=== PATIENT | male | born 1990 ===

== ENCOUNTER 2017-05-19 08:24 | Emergency (ER) | payer MEDICAID ==
[2017-05-19 08:43] VITALS: BMI 24.7
[2017-05-19 08:49] VITALS: O2SAT 100
--- NOTE | 2017-05-19 09:35 | C.PDOC ---
History Of Present Illness Pt c/o right sided neck pain on/off that started again this morning. He has a h/ o right cochlear implant for the past 20 year and he attributes this pain to the implant. He states that he does not use the implant anymore and therefore wants it to be removed. Time Seen by Provider: 05/19/17 09:08 Chief Complaint (Nursing): ENT Problem History Per: Patient, [employer] (Sign language) History/Exam Limitations: physical impairment (Deaf) Onset/Duration Of Symptoms: Days (chronic), Intermittent Episodes Current Symptoms Are (Timing): Still Present Quality Of Discomfort: "Pain" Severity: Moderate Previous Symptoms: Neck Pain Associated Symptoms: None Exacerbating Factor(s): Turning, Movement Additional History Per: Prior Records Past Medical History Reviewed: Historical Data, Nursing Documentation, Vital Signs Vital Signs: Last Vital Signs Temp 98.5 F 05/19/17 08:42 Pulse 87 05/19/17 08:42 Resp 16 05/19/17 08:42 BP 139/95 H 05/19/17 08:42 Pulse Ox 100 05/19/17 08:42 - Medical History Other PMH: Deaf Other Surgeries: Right cochlear implant Family History: States: Unknown Family Hx - Social History Hx Alcohol Use: No Hx Substance Use: No - Immunization History Hx Tetanus Toxoid Vaccination: No Hx Influenza Vaccination: No Hx Pneumococcal Vaccination: No Review Of Systems Except As Marked, All Systems Reviewed And Found Negative. Constitutional: Negative for: Fever, Weakness ENT: Negative for: Ear Discharge, Throat Pain Cardiovascular: Negative for: Chest Pain Respiratory: Negative for: Shortness of Breath Gastrointestinal: Negative for: Nausea, Vomiting, Abdominal Pain Musculoskeletal: Positive for: Neck Pain. Negative for: Back Pain Skin: Negative for: Rash Neurological: Negative for: Weakness, Numbness, Incoordination, Confusion, Seizures, Altered Mental Status, Dizziness Physical Exam - Physical Exam Appears: Non-toxic, No Acute Distress Skin: Normal Color, Warm, Dry, No Rash Head: Atraumatic, Normacephalic Eye(s): bilateral: Normal Inspection, PERRL, EOMI Ear(s): Bilateral: Normal Oral Mucosa: Moist, No Drooling, No Trismus Throat: Normal Neck: Normal ROM, No Midline Cervical Tenderness, Paracervical Tenderness (right ), No Step Off Deformity, Supple Lymphatic: No Adenopathy Cardiovascular: Rhythm Regular Respiratory: Normal Breath Sounds, No Accessory Muscle Use Gastrointestinal/Abdominal: Soft, No Tenderness Back: No CVA Tenderness Extremity: Normal ROM Neurological/Psych: Oriented x3, Normal Motor, Normal Sensation ED Course And Treatment O2 Sat by Pulse Oximetry: 100 Pulse Ox Interpretation: Normal Reassessment Condition: Improved Disposition Counseled Patient/Family Regarding: Diagnosis, Need For Followup, Rx Given - Disposition Referrals: Vipul Mcgee MD [Staff Provider] - Disposition: HOME/ ROUTINE Disposition Time: 09:38 Condition: STABLE Additional Instructions: Follow up with an ENT specialist for further evaluation and treatment. Return to the ER if you develop fever, redness, swelling, discharge, vomiting, weakness , numbness, worsening of symptoms or if you have any other concerns. Prescriptions: Cyclobenzaprine [Cyclobenzaprine HCl] 10 mg PO TID PRN #15 tab PRN Reason: Muscle Spasm Ibuprofen [Motrin Tab] 600 mg PO Q8 PRN #30 tab PRN Reason: Pain, Moderate (4-7) Instructions: Cervical Strain (DC) Forms: [facility] (Maltese), Work Excuse - Clinical Impression Clinical Impression: Neck pain on right side, History of cochlear implant
[2017-05-19 10:20] VITALS: BP 142/90; PULSE 79; RESP 18; TEMP 97.7
== END 2017-05-19 10:10 | disposition home or self-care (01) ==
LOC: C.ER 08:24
DX: M54.2 Cervicalgia (principal); Z94.89 Other transplanted organ and tissue status